=== PATIENT | female | born 1970 | race Two or more races ===

== ENCOUNTER → 2016-09-05 | Outpatient (CLI) | payer SELFPAY ==
--- NOTE | 2016-09-05 16:00 | KCIC ---
CHEST AP ONLY Indication:Reason For Study Reason: +PPD AND INTERFERON, LATENT TB WITHOUT ACTIVE SYMPTOMS / Spl. Instructions: / History: Positive reactor FINDINGS: The heart size is normal. Pulmonary vasculature is within normal limits. There is no pleural effusion, consolidating infiltrate, or pneumothorax. Mediastinal contours are within normal limits. IMPRESSION: - No acute disease of the chest. Specifically, no radiographic evidence for active pulmonary tuberculosis. Electronically signed by: Flako Dunn (Sep 05, 2016 15:58:54)
== END | disposition home or self-care (01) ==
LOC: KCIC 15:16
DX: R76.11 Nonspecific reaction to tuberculin skin test without active tuberculosis (principal)
CPT/HCPCS: 71020